=== PATIENT | female | born 1980 | race Caucasian/White ===

== ENCOUNTER 2020-07-07 07:10 | Outpatient (CLI) | payer OTHER, SELFPAY ==
[2020-07-07 07:23] LABS: Basophils Absolute Auto 0.08 K/mm3 (0.00-0.10); Basophils Percent Auto 0.6 % (0.0-1.0); Eosinophils Absolute Auto 0.83 K/mm3 (0.02-0.50); Eosinophils Percent Auto 5.7 % (1.0-6.0); Hematocrit 41.4 % (35.0-49.0); Hemoglobin 13.6 g/dL (12.0-15.0); Immature Granulocyte Absolute 0.08 K/mm3 (0.00-0.00); Immature Granulocyte Percent A 0.6 % (0.0-0.0); Lymphocytes Absolute Auto 3.65 K/mm3 (1.10-4.50); Lymphocytes Percent Auto 25.2 % (18.0-42.0); Mean Corpuscular HGB Conc 32.9 g/dL (32.0-36.0); Mean Corpuscular Hemoglobin 28.7 pg (27.0-31.0); Mean Corpuscular Volume 87.3 fL (78.0-102.0); Mean Platelet Volume 9.4 fl (9.2-11.8); Monocytes Absolute Auto 0.87 K/mm3 (0.10-0.90); Neutrophils Percent Auto 61.9 % (50.0-70.0); Platelet Count Result 460 K/mm3 (150-420); Red Blood Count 4.74 M/mm3 (4.20-5.40); Red Cell Distribution Width 13.9 % (11.6-14.4); White Blood Count 14.5 K/mm3 (4.8-10.8)
[2020-07-07 07:24] LABS: Add Urine Microscopic? NO; Appearance Urine Clear (Clear); Bilirubin Urine Negative (Negative); Blood Urine Negative (Negative); Color Urine Yellow (Yellow); Glucose Urine UA Negative (Negative); Ketones Urine Negative (Negative); Leukocyte Esterase Ur Negative (Negative); Nitrate Urine Negative (Negative); Protein Urine Negative (Negative); Specific Grav Ur <= 1.005 (1.010-1.020); Urobilinogen Urine 0.2 mg/dL (0.2-1.0); pH Urine 6.5 (5.0-8.0)
[2020-07-07 08:45] LABS: Alanine Aminotransferase 34 U/L (14-59); Albumin Level 3.6 g/dL (3.4-5.0); Alkaline Phosphatase 96 U/L (46-116); Anion Gap 7 mmol/L (8-16); Aspartate Amino Transferase 18 U/L (15-37); Bilirubin,Total 0.5 mg/dL (0.00-1.00); Blood Urea Nitrogen 11 mg/dL (7-18); CRP 1.7 mg/dL (0.0-0.9); Calcium 8.8 mg/dL (8.5-10.1); Carbon Dioxide 28 mmol/L (21-32); Chloride 103 mmol/L (98-108); Cholesterol 170 mg/dL (0-200); Estimated Glomerular Filt Rate > 60; Glucose 106 mg/dL (70-99); HDL Direct 26 mg/dL (40-60); LDL Cholesterol Calculated 112 mg/dL (<130); Osmolality Calculated 285 mOsm/kg (285-295); Potassium 4.6 mmol/L (3.5-5.1); Sodium 138 mmol/L (136-145); Thyroid Stimulating Hormone 2.41 uIU/mL (0.36-3.74); Total Protein 7.1 g/dL (6.4-8.2); Triglycerides 162 mg/dL (0-150)
[2020-07-10 11:09] LABS: Anti Cyclic Citrullinated Pept <16 Units (<20)
== END 2020-07-07 07:11 | disposition home or self-care (01) ==
PROVIDERS: PCP Internal Medicine; Visit Provider Internal Medicine
DX: Z00.00 Encounter for general adult medical examination without abnormal findings (principal); G56.03 Carpal tunnel syndrome, bilateral upper limbs; M06.9 Rheumatoid arthritis, unspecified
CPT/HCPCS: 36415; 80053; 80061; 81003; 84443; 85025; 86140; 86200

== ENCOUNTER 2020-09-24 15:52 | Outpatient (CLI) | payer OTHER, SELFPAY ==
[2020-09-24 16:09] LABS: Basophils Absolute Auto 0.07 K/mm3 (0.00-0.10); Basophils Percent Auto 0.6 % (0.0-1.0); Eosinophils Absolute Auto 0.61 K/mm3 (0.02-0.50); Hematocrit 37.6 % (35.0-49.0); Hemoglobin 12.4 g/dL (12.0-15.0); Immature Granulocyte Absolute 0.03 K/mm3 (0.00-0.00); Immature Granulocyte Percent A 0.2 % (0.0-0.0); Lymphocytes Absolute Auto 3.77 K/mm3 (1.10-4.50); Lymphocytes Percent Auto 31.1 % (18.0-42.0); Mean Corpuscular Hemoglobin 28.4 pg (27.0-31.0); Mean Platelet Volume 9.5 fl (9.2-11.8); Monocytes Absolute Auto 0.81 K/mm3 (0.10-0.90); Monocytes Percent Auto 6.7 % (2.0-11.0); Neutrophils Absolute Auto 6.9 K/mm3 (1.7-7.2); Neutrophils Percent Auto 56.4 % (50.0-70.0); Platelet Count Result 511 K/mm3 (150-420); Red Blood Count 4.37 M/mm3 (4.20-5.40); Red Cell Distribution Width 14.4 % (11.6-14.4); White Blood Count 12.1 K/mm3 (4.8-10.8)
[2020-09-24 17:14] LABS: Ferritin 31 ng/mL (8-252); Iron 24 ug/dL (50-170); Percent Iron Saturation 7 % (12-57)
[2020-09-30 13:01] LABS: CALR Exon 9 Mutation Not Detected (Not Detected); CSF3R Exon 14/17 Mutation Not Detected (Not Detected); JAK2 Exon 12 Mutation Not Detected (Not Detected); JAK2 V617F Mutation Not Detected (Not Detected); MPL Exon 10 Mutation Not Detected (Not Detected)
[2020-09-30 13:29] LABS: BCR/abl Prior Result Not Given
[2020-09-30 14:16] LABS: BCR/abl P190 Not Detected; BCR/abl P210 Not Detected
[2020-09-30 14:17] LABS: BCR/abl P190 Chg YES; BCR/abl P210 Chg YES
== END 2020-09-24 15:53 | disposition home or self-care (01) ==
LOC: CHSLAB 15:55
PROVIDERS: PCP Internal Medicine; Visit Provider Internal Medicine Hematology & Oncology
DX: D72.829 Elevated white blood cell count, unspecified (principal)
CPT/HCPCS: 36415; 81206; 81207; 81219; 81270; 81402; 81403; 81479; 82728; 83540; 83550; 85025

== ENCOUNTER 2021-04-09 12:06 | Outpatient (CLI) | payer OTHER, SELFPAY ==
[2021-04-09 12:17] LABS: Basophils Absolute Auto 0.05 K/mm3 (0.00-0.10); Basophils Percent Auto 0.4 % (0.0-1.0); Eosinophils Absolute Auto 0.66 K/mm3 (0.02-0.50); Eosinophils Percent Auto 5.1 % (1.0-6.0); Hematocrit 41.1 % (35.0-49.0); Hemoglobin 13.5 g/dL (12.0-15.0); Immature Granulocyte Absolute 0.06 K/mm3 (0.00-0.00); Immature Granulocyte Percent A 0.5 % (0.0-0.0); Lymphocytes Absolute Auto 3.43 K/mm3 (1.10-4.50); Lymphocytes Percent Auto 26.5 % (18.0-42.0); Mean Corpuscular HGB Conc 32.8 g/dL (32.0-36.0); Mean Corpuscular Hemoglobin 28.6 pg (27.0-31.0); Mean Corpuscular Volume 87.1 fL (78.0-102.0); Mean Platelet Volume 9.4 fl (9.2-11.8); Monocytes Absolute Auto 0.89 K/mm3 (0.10-0.90); Monocytes Percent Auto 6.9 % (2.0-11.0); Neutrophils Absolute Auto 7.8 K/mm3 (1.7-7.2); Neutrophils Percent Auto 60.6 % (50.0-70.0); Platelet Count Result 438 K/mm3 (150-420); Red Blood Count 4.72 M/mm3 (4.20-5.40); Red Cell Distribution Width 16.3 % (11.6-14.4); White Blood Count 12.9 K/mm3 (4.8-10.8)
[2021-04-09 12:56] LABS: Alanine Aminotransferase 50 U/L (14-59); Albumin Level 3.5 g/dL (3.4-5.0); Alkaline Phosphatase 99 U/L (46-116); Anion Gap 10 mmol/L (8-16); Aspartate Amino Transferase 24 U/L (15-37); Bilirubin,Total 0.2 mg/dL (0.00-1.00); Blood Urea Nitrogen 9 mg/dL (7-18); Calcium 8.7 mg/dL (8.5-10.1); Carbon Dioxide 28 mmol/L (21-32); Chloride 103 mmol/L (98-108); Estimated Glomerular Filt Rate > 60; Glucose 109 mg/dL (70-99); Osmolality Calculated 291 mOsm/kg (285-295); Potassium 4.1 mmol/L (3.5-5.1); Sodium 141 mmol/L (136-145)
[2021-04-10 14:54] LABS: Ferritin 56 ng/mL (8-252); Iron 34 ug/dL (50-170); Percent Iron Saturation 11 % (12-57)
[2021-04-15 16:31] LABS: CALR Exon 9 Mutation Not Detected (Not Detected); CSF3R Exon 14/17 Mutation Not Detected (Not Detected); JAK2 Exon 12 Mutation Not Detected (Not Detected); JAK2 V617F Mutation Not Detected (Not Detected); MPL Exon 10 Mutation Not Detected (Not Detected); Specimen Source Blood
[2021-04-17 13:06] LABS: BCR/abl Prior Result See Report
[2021-04-17 13:53] LABS: BCR/abl P190 Not Detected; BCR/abl P210 Not Detected
[2021-04-17 13:54] LABS: BCR/abl P190 Chg YES; BCR/abl P210 Chg YES
== END 2021-04-09 12:07 | disposition home or self-care (01) ==
LOC: CHSLAB 12:08
PROVIDERS: PCP Internal Medicine; Visit Provider Internal Medicine Hematology & Oncology
DX: D72.829 Elevated white blood cell count, unspecified (principal)
CPT/HCPCS: 36415; 80053; 81206; 81207; 81219; 81270; 81402; 81403; 81479; 82728; 83540; 83550; 85025

== ENCOUNTER 2021-04-30 12:42 | Outpatient (CLI) | payer OTHER, SELFPAY ==
[2021-04-30 13:11] VITALS: BMI 44.0
[2021-04-30 13:12] VITALS: BP 132/89; PULSE 72; RESP 14; TEMP 36.6; O2SAT 97
[2021-04-30] MEDS: IRON SUCROSE COMPLEX 300 MG in SODIUM CHLORIDE 0.9% IV 235 ML 125 MG IVPB (13:28)
--- NOTE | 2021-04-30 15:25 | PC.NURSE ---
Patient here for #1 of 3 weekly IV Venofer infusions. Education on Venofer given. No concerns. IV Venofer administered SEE MAR. Tolerated well. Safe exit of hospital. Will return May 07, 2021 1230 for #2.
== END 2021-04-30 12:43 | disposition home or self-care (01) ==
LOC: CHSTREATRM 12:45
PROVIDERS: PCP Internal Medicine; Visit Provider Internal Medicine Hematology & Oncology
DX: D50.9 Iron deficiency anemia, unspecified (principal)
CPT/HCPCS: 96365; 96366; J1756; J7050

== ENCOUNTER 2021-05-07 12:41 | Outpatient (CLI) | payer OTHER, SELFPAY ==
[2021-05-07 12:46] VITALS: BMI 44.0
[2021-05-07 12:54] VITALS: BP 150/87; PULSE 80; RESP 14; TEMP 36.4; O2SAT 97
[2021-05-07] MEDS: IRON SUCROSE COMPLEX 300 MG in SODIUM CHLORIDE 0.9% IV 250 ML 125 MG IVPB (13:06)
--- NOTE | 2021-05-07 15:08 | PC.NURSE ---
Patient here for #2 of 3 IV Venofer infusions. No concerns voiced. IV Venofer administered. SEE MAR. Tolerated well. Safe exit of hospital. Will be back 2020 for #3.
== END 2021-05-07 12:42 | disposition home or self-care (01) ==
LOC: CHSTREATRM 12:44
PROVIDERS: PCP Internal Medicine; Visit Provider Internal Medicine Hematology & Oncology
DX: D50.9 Iron deficiency anemia, unspecified (principal)
CPT/HCPCS: 96365; 96366; J1756; J7050

== ENCOUNTER 2021-05-14 12:52 | Outpatient (CLI) | payer OTHER, SELFPAY ==
[2021-05-14] MEDS: IRON SUCROSE COMPLEX 300 MG in SODIUM CHLORIDE 0.9% IV 235 ML 125 MG IVPB (13:15)
[2021-05-14 13:37] VITALS: BMI 44.0
[2021-05-14 13:38] VITALS: BP 120/87; PULSE 80; RESP 14; TEMP 36.5; O2SAT 95
--- NOTE | 2021-05-14 15:11 | PC.NURSE ---
Patient here for #3 of 3 IV Venofer infusions. No concerns. IV Venofer administered. Tolerated well. Safe exit of hospital.
== END 2021-05-14 12:53 | disposition home or self-care (01) ==
LOC: CHSTREATRM 12:54
PROVIDERS: PCP Internal Medicine; Visit Provider Internal Medicine Hematology & Oncology
DX: D50.9 Iron deficiency anemia, unspecified (principal)
CPT/HCPCS: 96365; 96366; J1756; J7050

== ENCOUNTER 2021-07-02 14:00 | Outpatient (CLI) | payer OTHER, SELFPAY ==
[2021-07-02 14:25] LABS: Basophils Absolute Auto 0.07 K/mm3 (0.00-0.10); Basophils Percent Auto 0.5 % (0.0-1.0); Eosinophils Absolute Auto 0.57 K/mm3 (0.02-0.50); Eosinophils Percent Auto 4.4 % (1.0-6.0); Hematocrit 42.8 % (35.0-49.0); Hemoglobin 14.6 g/dL (12.0-15.0); Immature Granulocyte Absolute 0.07 K/mm3 (0.00-0.00); Immature Granulocyte Percent A 0.5 % (0.0-0.0); Lymphocytes Absolute Auto 2.72 K/mm3 (1.10-4.50); Lymphocytes Percent Auto 21.1 % (18.0-42.0); Mean Corpuscular HGB Conc 34.1 g/dL (32.0-36.0); Mean Corpuscular Hemoglobin 31.2 pg (27.0-31.0); Mean Corpuscular Volume 91.5 fL (78.0-102.0); Mean Platelet Volume 9.9 fl (9.2-11.8); Monocytes Absolute Auto 0.98 K/mm3 (0.10-0.90); Monocytes Percent Auto 7.6 % (2.0-11.0); Neutrophils Absolute Auto 8.5 K/mm3 (1.7-7.2); Neutrophils Percent Auto 65.9 % (50.0-70.0); Platelet Count Result 422 K/mm3 (150-420); Red Blood Count 4.68 M/mm3 (4.20-5.40); Red Cell Distribution Width 14.6 % (11.6-14.4); White Blood Count 12.9 K/mm3 (4.8-10.8)
[2021-07-02 15:21] LABS: Ferritin 215 ng/mL (8-252); Iron 32 ug/dL (50-170); Percent Iron Saturation 12 % (12-57)
== END 2021-07-02 14:01 | disposition home or self-care (01) ==
LOC: CHSLAB 14:04
PROVIDERS: PCP Internal Medicine; Visit Provider Internal Medicine Hematology & Oncology
DX: E61.1 Iron deficiency (principal)
CPT/HCPCS: 36415; 82728; 83540; 83550; 85025

== ENCOUNTER 2022-11-15 16:27 | Emergency (ER) | payer OTHER, SELFPAY ==
[2022-11-15 16:28] VITALS: BP 172/114; PULSE 117; RESP 16; TEMP 36.3; O2SAT 99
--- NOTE | 2022-11-15 16:42 | ED.URI ---
HPI - URI/Sore Throat General Chief Complaint: Upper Respiratory Infection Stated Complaint: sore throat Time Seen by Provider: 11/15/22 16:40 Source: patient Mode of arrival: ambulatory History of Present Illness HPI Narrative: 42-year-old female, smoker presents to the ER with a 3 day history of -- sore throat -- change in voice no fever or chills. No cough or shortness of breath MD elicited complaint: sore throat Onset (ago): day(s) ( started 3 days ago) Consistency: constant Severity: mild Able to tolerate fluids by mouth: Yes Exacerbating factors: nothing Relieving factors: nothing Associated symptoms: denies other symptoms Related Data Home Medications Medication Instructions Recorded Confirmed ferrous sulfate 325 mg (65 mg 325 mg PO DAILY 04/30/21 11/15/22 iron) tablet montelukast 10 mg tablet 10 mg PO HS 04/30/21 11/15/22 omeprazole 40 mg capsule,delayed 40 mg PO DAILY 04/30/21 11/15/22 release Allergies Allergy/AdvReac Type Severity Reaction Status Date / Time No Known Allergies Allergy Mild Unverified 11/15/22 16:35 Review of Systems Review of Systems: All systems reviewed & are unremarkable except as noted in HPI and below Constitutional: Constitutional: Reports as per HPI and Reports no additional constitutional complaints Eyes: Eyes: Reports as per HPI and Reports no additional eye complaints ENT: Reports system reviewed and no additional complaints, except as documented and Reports sore throat Cardiovascular: Cardiovascular: Reports as per HPI and Reports no additional cardiovascular complaints Respiratory: Respiratory: Reports as per HPI and Reports no additional respiratory complaints Comments: history of snoring Gastrointestinal: Gastrointestinal: Reports as per HPI and Reports no additional gastrointestinal complaints Genitourinary: Genitourinary: Reports no additional female genitourinary complaints and Reports as per HPI Musculoskeletal: Musculoskeletal: Reports no additional musculoskeletal complaints and Reports as per HPI Integumentary/Breasts: Skin/Breast: Reports system reviewed and no additional complaints, except as docu and Reports as per HPI Neurologic: Reports system reviewed and no additional complaints, except as documented and Reports as per HPI Psychiatric: Psychiatric: Reports no additional psychiatric complaints and Reports as per HPI Endocrine: Endocrine: Reports no additional endocrine complaints and Reports as per HPI Hematologic/Lymphatic: Hematologic/Lymphatic: Reports no additional hematologic/lymphatic complaints and Reports as per HPI Allergic/Immunologic: Allergic/Immunologic: Reports no additional allergic/immunologic complaints and Reports as per [facility] Social History Social History (Updated 11/15/22 @ 16:51 by Goran Milligan MD) Social History: smoker Exam Const: General: healthy appearing Nutritional Appearance: well nourished Orientation/consciousness: patient oriented x3 Limitations: no limitations HENMT: Head: normal to inspection Ears: external ears normal Face/Nose/Sinus: Normal external nose present Face and sinus: normal facial exam Mouth: Yes Normal oral and palatal mucosa present Throat: posterior oropharynx normal ( pharyngeal erythema) Eyes: Conjunctivae: conjunctivae normal Pupils: Equal, round and reactive pupils present EOM: EOMs intact bilaterally Direct Ophthalmoscopy: no photophobia Neck: Neck: normal visual inspection, no lymphadenopathy, no meningeal signs and lymphadenopathy Chest: Chest palpation & inspection: normal inspection of the chest Resp: Effort & Inspection: normal respiratory effort Auscultation: clear to auscultation bilaterally Cardio: Rate: regular rate Rhythm: regular rhythm Heart sounds: Murmur heart sound present GI: GI Palp: Yes Soft to palpation Auscultation: normal bowel sounds Rectal Exam: normal sphincter tone : General: Yes no CVA tenderness Back/Spine/Pelv
[2022-11-15 16:47] VITALS: BP 156/101
--- NOTE | 2022-11-15 16:58 | ECG_ITS ---
Measurements Intervals Grant Rate: 95 P: 41 MS: 149 QRS: 39 QRSD: 94 T: 29 QT: 349 QTc: 440 Interpretive Statements SINUS RHYTHM BASELINE ARTIFACT- II, III, AVF NORMAL ECG NO PREVIOUS ECG AVAILABLE FOR COMPARISON Electronically Signed On 11-15-2022 19:28:22 CDT by Benjamin Whitmore D.O.
[2022-11-15 17:10] LABS: Basophils Percent Auto 0.7 % (0.0-1.0); Eosinophils Percent Auto 4.8 % (1.0-6.0); Hemoglobin 13.1 g/dL (12.0-15.0); Immature Granulocyte Absolute 0.07 K/mm3 (0.00-0.00); Immature Granulocyte Percent A 0.5 % (0.0-0.0); Lymphocytes Absolute Auto 3.31 K/mm3 (1.10-4.50); Lymphocytes Percent Auto 22.6 % (18.0-42.0); Mean Corpuscular HGB Conc 32.8 g/dL (32.0-36.0); Mean Corpuscular Hemoglobin 28.5 pg (27.0-31.0); Mean Corpuscular Volume 87.1 fL (78.0-102.0); Mean Platelet Volume 9.7 fl (9.2-11.8); Monocytes Absolute Auto 1.04 K/mm3 (0.10-0.90); Monocytes Percent Auto 7.1 % (2.0-11.0); Neutrophils Absolute Auto 9.4 K/mm3 (1.7-7.2); Neutrophils Percent Auto 64.3 % (50.0-70.0); Platelet Count Result 451 K/mm3 (150-420); Red Blood Count 4.59 M/mm3 (4.20-5.40); Red Cell Distribution Width 13.7 % (11.6-14.4); White Blood Count 14.6 K/mm3 (4.8-10.8)
[2022-11-15 17:27] LABS: Alanine Aminotransferase 33 U/L (14-59); Albumin Level 3.3 g/dL (3.4-5.0); Alkaline Phosphatase 89 U/L (46-116); Anion Gap 5 mmol/L (8-16); Aspartate Amino Transferase 19 U/L (15-37); Bilirubin,Total 0.2 mg/dL (0.00-1.00); Blood Urea Nitrogen 11 mg/dL (7-18); Carbon Dioxide 31 mmol/L (21-32); Chloride 102 mmol/L (98-108); Estimated Glomerular Filt Rate > 60; Glucose 107 mg/dL (70-99); Osmolality Calculated 285 mOsm/kg (285-295); Potassium 3.6 mmol/L (3.5-5.1); Sodium 138 mmol/L (136-145); Total Protein 7.7 g/dL (6.4-8.2); Troponin I 20.5 ng/L (0.00-60.4)
[2022-11-15 17:53] LABS: RSV RNA, RT-PCR Negative (Negative)
[2022-11-15 18:04] LABS: Influenza A QL RT-PCR Negative (Negative); Influenza B QL RT-PCR Negative (Negative); SARS-CoV-2 RNA PCR Negative (Negative)
[2022-11-15 18:15] LABS: Strep Group A RT-PCR NOT DETECTED (Negative)
[2022-11-15 18:27] VITALS: BP 163/104; PULSE 90; RESP 16; TEMP 36.7; O2SAT 100
== END 2022-11-15 18:27 | disposition home or self-care (01) ==
PROVIDERS: Emergency Provider Internal Medicine Critical Care Medicine; PCP Internal Medicine
DX: J06.9 Acute upper respiratory infection, unspecified (principal); I10 Essential (primary) hypertension; Z20.822 Contact with and (suspected) exposure to COVID-19
CPT/HCPCS: 36415; 80053; 84484; 85025; 87634; 87636; 87651; 93005; 99283

== ENCOUNTER 2024-08-14 16:48 | Emergency (ER) | payer SELFPAY ==
--- NOTE | ~2024-08-14 | XR_ITS ---
EXAMINATION: XR chest 2V Exam Date/Time: 08/14/2024 18:04 PERCHER HISTORY: cough Comparison: 07/21/2017. RESULT: Lines, tubes, and devices: None. Lungs and pleura: Mild diffuse reticular opacities and cuffing. No focal consolidation, pleural effu odessa, or pneumothorax. Cardiomediastinal silhouette: Stable. Other: No acute osseous or upper abdominal finding. IMPRESSION: Pulmonary opacities may represent respiratory bronchiolitis or mild interstitial edema. Reviewed, dictated and finalized at location K. HER IMPRESSION: Pulmonary opacities may represent respiratory bronchiolitis or mild interstitia l edema.
[2024-08-14 16:50] VITALS: PULSE 85; RESP 20; O2SAT 97
[2024-08-14 16:52] VITALS: BP 172/104; PULSE 106; RESP 20; TEMP 36.9; O2SAT 97
[2024-08-14 17:05] VITALS: O2SAT 97
--- NOTE | 2024-08-14 17:42 | ED_ITS ---
HPI - URI/Sore Throat General Chief Complaint: Upper Respiratory Infection Stated Complaint: Resp Symptoms Time Seen by Provider: 08/14/24 17:38 Source: patient Mode of arrival: ambulatory Limitations: no limitations History of Present Illness HPI Narrative: 43 year old female presents to the Emergency Department complaining of hoarseness in voice for past 3 weeks. Now has cough for past 3 days. Cough productive green phlegm. No known fever. No known exposure. No vomiting, diarrhea. MD elicited complaint: cough Onset (ago): week(s) (3) Severity: moderate Description of mucous: green Able to tolerate fluids by mouth: Yes Exacerbating factors: nothing Relieving factors: nothing Associated symptoms: voice changes Treatments prior to arrival: none Related Data Home Medications ?Medication ?Instructions ?Recorded ?Confirmed ?Last Taken ?Type ferrous sulfate 325 mg (65 mg 325 mg PO DAILY 04/30/21 11/15/22 Unknown History iron) tablet montelukast 10 mg tablet 10 mg PO HS 04/30/21 11/15/22 Unknown History omeprazole 40 mg capsule,delayed 40 mg PO DAILY 04/30/21 11/15/22 Unknown History release Allergies Allergy/AdvReac Type Severity Reaction Status Date / Time No Known Allergies Allergy Mild Unverified 11/15/22 16:35 Review of Systems Review of Systems: All systems reviewed & are unremarkable except as noted in HPI and below Constitutional: Constitutional: Reports as per HPI, Denies chills and Denies fever(s) Eyes: Eyes: Reports as per HPI ENT: Reports system reviewed and no additional complaints, except as documented and Denies sore throat Comments: hoarse voice Cardiovascular: Cardiovascular: Reports as per HPI and Denies chest pain Respiratory: Respiratory: Reports as per HPI and Reports cough Gastrointestinal: Gastrointestinal: Reports as per HPI, Denies abdominal pain, Denies diarrhea, Denies nausea and Denies vomiting Genitourinary: Genitourinary: Reports no additional female genitourinary complaints Musculoskeletal: Musculoskeletal: Reports no additional musculoskeletal complaints Integumentary/Breasts: Skin/Breast: Reports system reviewed and no additional complaints, except as docu Neurologic: Reports system reviewed and no additional complaints, except as documented Psychiatric: Psychiatric: Reports no additional psychiatric complaints Endocrine: Endocrine: Reports no additional endocrine complaints Hematologic/Lymphatic: Hematologic/Lymphatic: Reports no additional hematologic/lymphatic complaints Allergic/Immunologic: Allergic/Immunologic: Reports no additional allergic/immunologic complaints [facility] Social History Social History Social History: smoker Exam Const: General: no acute distress Nutritional Appearance: well nourished and obese Orientation/consciousness: patient oriented x3 Limitations: no limitations HENMT: Head: normal to inspection Ears: external ears normal Face/Nose/Sinus: Normal external nose present and Normal nares present Face and sinus: normal facial exam Mouth: Yes Normal oral and palatal mucosa present and Yes moist mucous membranes Throat: posterior oropharynx normal Eyes: Conjunctivae: conjunctivae normal Pupils: Equal, round and reactive pupils present EOM: EOMs intact bilaterally Direct Ophthalmoscopy: no photophobia Neck: Neck: normal visual inspection and meningismus present Chest: Chest palpation & inspection: normal inspection of the chest Resp: Effort & Inspection: normal respiratory effort Auscultation: clear to auscultation bilaterally and diminished lung sounds Cardio: Rate: regular rate Rhythm: regular rhythm Heart sounds: no murmurs GI: Inspection: non-distended GI Palp: Yes Soft to palpation and No Tenderness to palpation present (GI) : General: Yes bladder normal to palpation Back/Spine/Pelvis: Back: no CVA tenderness Skin: General skin exam: normal color Rashes: no rashes Neuro: General: patient oriented x3, moves all extremities, no meningeal signs, no focal motor deficits and CN's II-XI intact bilaterally Cranial nerves: Yes Nystagmus not present Speech: normal speech Gait exam (Neuro): Normal gait present Extrem: General: normal to inspection and no clubbing, cyanosis or edema Psych: Mental Status: mental status grossly normal Course Course Emergency Course: 43 y/o female presents to the ED c/o hoarse voice x 3 weeks and cough x 3 days. Cough productive green phlegm. No known exposure. No fever, nausea, vomiting, diarrhea. PE: obese, decreased breath sounds Covid: negative Influenza: negative RSV: negative CXR: pulmonary opacities may represent respiratory bronchiolitis or mild interstitial edema Tx: Zithromax 500 mg po *reviewed and discussed results with patient. Discussed further management. Patient voices understanding and agreement. Rx and Instructions Vital Signs Vital signs: Vital Signs Pulse Rate 85 08/14/24 16:50 Respiratory Rate 20 08/14/24 16:50 Pulse Oximetry 97 08/14/24 16:50 Oxygen Delivery Room Air 08/14/24 16:50 Temperature 36.9 C 08/14/24 16:52 Pulse Rate 106 H 08/14/24 16:52 Respiratory Rate 20 08/14/24 16:52 Blood Pressure 172/104 H 08/14/24 16:52 Pulse Oximetry 97 08/14/24 17:05 Oxygen Delivery Room Air 08/14/24 17:05 MDM - URI/Sore Throat Lab Data Labs: Lab Results 08/14/24 Range/Units 18:33 Influenza A (RT-PCR) Negative (Negative) Influenza B (RT-PCR) Negative (Negative) RSV (RT-PCR) Negative (Negative) SARS-CoV-2 RNA (RT-PCR) Negative (Negative) Discharge Plan Discharge Clinical Impression: Bronchiolitis Patient Disposition: Home, Self-Care Condition: Stable Instructions: Antibiotic Form, Bronchiolitis (ED) Additional Instructions: Push fluids Tylenol every 4 hours and Ibuprofen every 6 hours for fever Throat lozenges /sprays (benzocaine) as needed Take medication as prescribed Follow up Primary Care Physician Patient Language: Portuguese Prescriptions: New azithromycin [Zithromax Z-Darren] 250 mg tablet See Rx Instructions .ROUTE .COMPLEX Qty: 6 0RF Rx Instructions: For 250 mg dose pack: take 500 mg today (day 1), then 250 mg for 4 days (days 2-5) No Action omeprazole 40 mg Capsule,Delayed Release(Dr/Ec) 40 mg PO DAILY ferrous sulfate 325 mg (65 mg iron) Tablet 325 mg PO DAILY montelukast 10 mg Tablet 10 mg PO Follow-up/Referrals: Mikael Mart MD [Primary Care Provider] - Time of Disposition: 19:41
[2024-08-14 19:12] LABS: SARS-CoV-2 RNA PCR Negative (Negative)
[2024-08-14 19:15] LABS: Influenza A QL RT-PCR Negative (Negative); Influenza B QL RT-PCR Negative (Negative); RSV RNA, RT-PCR Negative (Negative)
[2024-08-14 19:45] VITALS: BP 172/104; PULSE 85; RESP 18; TEMP 36.9; O2SAT 98
--- NOTE | 2024-08-14 19:45 | PC.NURSE ---
ERP aware of Pt's vital's. No new orders.
[2024-08-14] MEDS: AZITHROMYCIN 250 MG TABLET 500 MG PO (19:48)
== END 2024-08-14 19:45 | disposition home or self-care (01) ==
PROVIDERS: Emergency Provider Emergency Medicine; PCP Internal Medicine
DX: J21.9 Acute bronchiolitis, unspecified (principal); Z20.822 Contact with and (suspected) exposure to COVID-19
CPT/HCPCS: 71046; 87637; 99283; A9270

== ENCOUNTER 2024-08-27 14:51 | Outpatient (CLI) | payer OTHER, SELFPAY ==
[2024-08-27 15:23] LABS: Appearance Urine Clear (Clear); Bilirubin Urine Negative (Negative); Blood Urine Negative (Negative); Color Urine Light Yellow (Yellow); Glucose Urine UA Negative (Negative); Ketones Urine Negative (Negative); Nitrate Urine Negative (Negative); Protein Urine Negative (Negative); Urobilinogen Urine 0.2 mg/dL (0.2-1.0)
[2024-08-27 15:24] LABS: Basophils Absolute Auto 0.05 K/mm3 (0.00-0.10); Basophils Percent Auto 0.4 % (0.0-1.0); Eosinophils Absolute Auto 0.66 K/mm3 (0.02-0.50); Eosinophils Percent Auto 5.1 % (1.0-6.0); Hematocrit 31.9 % (35.0-49.0); Hemoglobin 9.5 g/dL (12.0-15.0); Immature Granulocyte Absolute 0.09 K/mm3 (0.00-0.00); Immature Granulocyte Percent A 0.7 % (0.0-0.0); Immature Platelet Fraction Pct 2.4 % (1.0-7.0); Lymphocytes Absolute Auto 2.74 K/mm3 (1.10-4.50); Mean Corpuscular HGB Conc 29.8 g/dL (32-36); Mean Corpuscular Volume 70.4 fL (78.0-102.0); Mean Platelet Volume 9.2 fl (9.2-11.8); Monocytes Absolute Auto 0.82 K/mm3 (0.10-0.90); Monocytes Percent Auto 6.3 % (2.0-11.0); Neutrophils Absolute Auto 8.69 K/mm3 (1.70-7.20); Neutrophils Percent Auto 66.5 % (50.0-70.0); Nucleated Red Blood Cells Absolute Auto 0.02 K/mm3 (0.00-0.00); Nucleated Red Blood Cells Perc 0.2 % (0-0.0); Platelet Count Result 612 K/mm3 (150-420); Red Blood Count 4.53 M/mm3 (4.20-5.40); Red Cell Distribution Width 19.5 % (11.6-14.4); White Blood Count 13.1 K/mm3 (4.8-10.8)
[2024-08-27 15:30] LABS: Add Urine Microscopic? NO; Leukocyte Esterase Ur Negative (Negative)
[2024-08-27 16:03] LABS: Alanine Aminotransferase 46 U/L (14-59); Albumin Level 3.3 g/dL (3.4-5.0); Alkaline Phosphatase 118 U/L (46-116); Anion Gap 9 mmol/L (4-12); Aspartate Amino Transferase 32 U/L (15-37); Bilirubin,Total 0.2 mg/dL (0.00-1.00); Blood Urea Nitrogen 8 mg/dL (7-18); Calcium 9.3 mg/dL (8.5-10.1); Carbon Dioxide 30 mmol/L (21-32); Chloride 99 mmol/L (98-108); Cholesterol 153 mg/dL (0-200); Estimated Glomerular Filt Rate > 60; Glucose 138 mg/dL (70-99); HDL Direct 27 mg/dL (40-60); LDL Cholesterol Calculated 72 mg/dL (<130); Osmolality Calculated 286 mOsm/kg (285-295); Potassium 4.2 mmol/L (3.5-5.1); Sodium 138 mmol/L (136-145); Thyroid Stimulating Hormone 4.29 uIU/mL (0.36-3.74); Total Protein 7.4 g/dL (6.4-8.2); Triglycerides 270 mg/dL (0-150)
[2024-08-31 11:27] LABS: Hemoglobin A1C 7.7 % (<5.7)
== END 2024-08-27 14:52 | disposition home or self-care (01) ==
PROVIDERS: PCP Internal Medicine; Visit Provider Internal Medicine
DX: I10 Essential (primary) hypertension (principal); R73.01 Impaired fasting glucose
CPT/HCPCS: 36415; 80053; 80061; 81003; 83036; 84439; 84443; 85025; 85055

== ENCOUNTER 2024-09-17 07:59 | Emergency (ER) | payer OTHER, SELFPAY ==
[2024-09-17 08:00] VITALS: BP 153/105; PULSE 102; RESP 20; TEMP 36.6; O2SAT 100
--- NOTE | 2024-09-17 08:04 | ED.BACK ---
HPI - Back Pain/Injury General Chief Complaint: Back Pain/Injury Stated Complaint: lower back pain Time Seen by Provider: 09/17/24 08:04 History of Present Illness HPI Narrative: Pt was coughing yesterday and had pain in her right back/rib cage. Pt says it hurts to cough or move in certain ways. Pain is persistent but waxes and wanes in severity depending on movements or coughing which make it worse. Pt denies SOB or fever. Pt treated with antibiotics for branchitis recently. Related Data Home Medications ?Medication ?Instructions ?Recorded ?Confirmed ?Last Taken ?Type ferrous sulfate 325 mg (65 mg 325 mg PO DAILY 04/30/21 11/15/22 Unknown History iron) tablet montelukast 10 mg tablet 10 mg PO HS 04/30/21 11/15/22 Unknown History omeprazole 40 mg capsule,delayed 40 mg PO DAILY 04/30/21 11/15/22 Unknown History release cetirizine 10 mg tablet mg 09/17/24 Unknown History lisinopril 20 mg tablet mg 09/17/24 Unknown History Allergies Allergy/AdvReac Type Severity Reaction Status Date / Time No Known Allergies Allergy Mild Verified 09/17/24 08:32 Review of Systems Review of Systems: All systems reviewed & are unremarkable except as noted in HPI and below [facility] Social History Social History Social History: smoker Exam Const: General: cooperative, healthy appearing and no acute distress Nutritional Appearance: obese Orientation/consciousness: patient oriented x3 Limitations: no limitations Neck: Neck: normal visual inspection and full ROM Chest: Chest palpation & inspection: tenderness (right posterior lower intercostal muscles and ribs) Resp: Effort & Inspection: normal respiratory effort, able to speak in complete sentences and symmetric chest movement Auscultation: clear to auscultation bilaterally Cardio: Rate: regular rate Rhythm: regular rhythm Skin: General skin exam: normal color and no rashes or lesions noted Neuro: General: patient oriented x3 and moves all extremities Extrem: General: full ROM Psych: Appearance: grossly normal Mental Status: mental status grossly normal Speech and movement: Normal speech and movement present Affect: normal affect Attitude: cooperative Thought process: Normal thought process present Thought content: Yes Normal thought content present Course Vital Signs Vital signs: Vital Signs Temperature 97.9 F 09/17/24 08:00 Pulse Rate 102 H 01/13/25 08:00 Respiratory Rate 20 09/17/24 08:00 Blood Pressure 153/105 H 09/17/24 08:00 Pulse Oximetry 100 09/17/24 08:00 Oxygen Delivery Room Air 09/17/24 08:00 Temperature 97.9 F 09/17/24 08:00 Pulse Rate 102 H 09/17/24 08:00 Respiratory Rate 20 09/17/24 08:00 Blood Pressure 153/105 H 09/17/24 08:00 Pulse Oximetry 100 09/17/24 08:00 Oxygen Delivery Room Air 09/17/24 08:00 MDM - Back Pain/Injury MDM Narrative Medical decision making narrative: Pt presents with pain in right posterior lower rib cage after coughing yesterday. Seems like intercostal muscle pain spasm likely secondary to muscle strain. Lungs clear. Will give toradol IM here and home on muscle relaxer Discharge Plan Discharge Clinical Impression: Intercostal muscle strain Patient Disposition: Home, Self-Care Condition: Stable Instructions: Antibiotic Form, Thoracic Back Strain (ED) Patient Language: Macanese Prescriptions: New naproxen [Naprosyn] 500 mg tablet 500 mg PO BID Qty: 20 0RF methocarbamol 750 mg tablet 750 mg PO TID Qty: 30 0RF naproxen [Naprosyn] 500 mg tablet 500 mg PO BID Qty: 20 0RF methocarbamol 750 mg tablet 750 mg PO TID Qty: 30 0RF naproxen [Naprosyn] 500 mg tablet 500 mg PO BID Qty: 20 0RF methocarbamol 750 mg tablet 750 mg PO TID Qty: 30 0RF No Action omeprazole 40 mg Capsule,Delayed Release(Dr/Ec) 40 mg PO DAILY ferrous sulfate 325 mg (65 mg iron) Tablet 325 mg PO DAILY montelukast 10 mg Tablet 10 mg PO HS cetirizine 10 mg tablet lisinopril 20 mg tablet Follow-up/Referrals: Mikael Mart MD [Primary Care Provider] - Stand Alone Forms: Work/School Release IP
[2024-09-17] MEDS: KETOROLAC 30 MG/ML VIAL (*BKC) IM (08:19)
== END 2024-09-17 08:35 | disposition home or self-care (01) ==
PROVIDERS: Emergency Provider Emergency Medicine; PCP Internal Medicine
DX: S29.011A Strain of muscle and tendon of front wall of thorax, initial encounter (principal); X58.XXXA Exposure to other specified factors, initial encounter
CPT/HCPCS: 96372; 99283; J1885

== ENCOUNTER 2024-10-19 17:26 | Outpatient (CLI) | payer OTHER, SELFPAY ==
[2024-10-19 17:51] LABS: Hematocrit 38.5 % (35.0-49.0); Hemoglobin 11.3 g/dL (12.0-15.0); Immature Platelet Fraction Pct 2.9 % (1.0-7.0); Immature Reticulocyte Fraction 24.9 % (2.0-16.52); Mean Corpuscular HGB Conc 29.4 g/dL (32-36); Mean Corpuscular Hemoglobin 21.3 pg (27.0-31.0); Mean Corpuscular Volume 72.5 fL (78.0-102.0); Mean Platelet Volume 9.6 fl (9.2-11.8); Platelet Count Result 565 K/mm3 (150-420); Red Blood Count 5.31 M/mm3 (4.20-5.40); Red Cell Distribution Width 21.7 % (11.6-14.4); Reticulocyte Hemoglobin Conten 25.7 pg (28.0-35.0); Reticulocyte Percent 1.64 % (0.50-1.50); Reticulocytes Absolute 0.09 M/mm3 (0.02-0.10); White Blood Count 14.4 K/mm3 (4.8-10.8)
[2024-10-19 18:44] LABS: Ferritin 23 ng/mL (8-252); Iron 12 ug/dL (50-170); Percent Iron Saturation 3 % (12-57)
== END 2024-10-19 17:27 | disposition home or self-care (01) ==
LOC: CHSLAB 17:28
PROVIDERS: PCP Internal Medicine; Visit Provider Internal Medicine
DX: N92.4 Excessive bleeding in the premenopausal period (principal); D64.9 Anemia, unspecified
CPT/HCPCS: 36415; 82728; 83540; 83550; 85027; 85046; 85055

== ENCOUNTER 2024-10-22 09:50 | Emergency (ER) | payer OTHER, SELFPAY ==
--- NOTE | ~2024-10-22 | XR_ITS ---
EXAMINATION: XR ribs RT 2V DATE: 10/22/2024 10:48 INDICATION: Lower right rib pain. TECHNIQUE: 2 views of the right ribs on 3 radiographs were obtained. COMPARISON: Chest 2 views 08/14/2024 FINDINGS: There is mild atelectasis in right lower lung zone. No right-sided pleural effusion or pneu mothorax. There are fractures of right sixth-ninth ribs. There are gallstones in the gallbladder. IMPRESSION: 1. Acute fractures of right sixth-ninth ribs. Reviewed, dictated and finalized at location A. [facility]
[2024-10-22 09:50] VITALS: BP 172/100; PULSE 105; RESP 18; TEMP 36.6; O2SAT 96
--- NOTE | 2024-10-22 10:17 | ED_ITS ---
HPI - Abdominal Pain General Chief Complaint: Abdominal Pain Stated Complaint: rib pain Time Seen by Provider: 10/22/24 10:04 Source: patient Mode of arrival: ambulatory Limitations: no limitations History of Present Illness HPI narrative: patient is a 44-year-old female with no significant past medical history that presents today for rib pain. Patient has pain in her right ribs. She said she was in the shower and felt a sharp pain in the right rib. She says she was at work today and is having a lot of pain and they sent her home and told her the emergency department. It hurts worse when she moves to right or left. MD elicited complaint: abdominal pain Pertinent past history: none Onset (ago): day(s) Pain Consistency: intermittent Location: other ( Right ribs) Severity: mild Quality: cramping and stabbing Radiation: none Migration to: no migration Exacerbating factors: movement Relieving factors: nothing Associated symptoms: denies other symptoms Related Data Home Medications ?Medication ?Instructions ?Recorded ?Confirmed ?Last Taken ?Type ferrous sulfate 325 mg (65 mg 325 mg PO DAILY 04/30/21 11/15/22 Unknown History iron) tablet montelukast 10 mg tablet 10 mg PO HS 04/30/21 11/15/22 Unknown History omeprazole 40 mg capsule,delayed 40 mg PO DAILY 04/30/21 11/15/22 Unknown History release cetirizine 10 mg tablet mg 09/17/24 Unknown History lisinopril 20 mg tablet mg 09/17/24 Unknown History Allergies Allergy/AdvReac Type Severity Reaction Status Date / Time No Known Allergies Allergy Mild Verified 10/22/24 09:58 Review of Systems Review of Systems: All systems reviewed & are unremarkable except as noted in HPI and below Constitutional: Constitutional: Reports as per HPI Eyes: Eyes: Reports no additional eye complaints ENT: Reports system reviewed and no additional complaints, except as documented Cardiovascular: Cardiovascular: Reports no additional cardiovascular complaints Respiratory: Respiratory: Reports no additional respiratory complaints Gastrointestinal: Gastrointestinal: Reports no additional gastrointestinal complaints Genitourinary: Genitourinary: Reports no additional female genitourinary complaints Musculoskeletal: Musculoskeletal: Reports arthralgias ( right ribs) Integumentary/Breasts: Skin/Breast: Reports system reviewed and no additional complaints, except as docu Neurologic: Reports system reviewed and no additional complaints, except as documented Psychiatric: Psychiatric: Reports no additional psychiatric complaints Endocrine: Endocrine: Reports no additional endocrine complaints Hematologic/Lymphatic: Hematologic/Lymphatic: Reports no additional hematologic/lymphatic complaints Allergic/Immunologic: Allergic/Immunologic: Reports no additional allergic/immunologic complaints PMFSH Social History Social History Social History: smoker Exam Const: General: healthy appearing Nutritional Appearance: well nourished Orientation/consciousness: patient oriented x3 HENMT: Head: normal to inspection Ears: external ears normal Face/N ose/Sinus: Normal external nose present Face and sinus: normal facial exam Mouth: Yes Normal oral and palatal mucosa present Eyes: Conjunctivae: conjunctivae normal Pupils: Equal, round and reactive pupils present EOM: EOMs intact bilaterally Neck: Neck: normal visual inspection Chest: Chest palpation & inspection: normal inspection of the chest Resp: Effort & Inspection: normal respiratory effort Auscultation: clear to auscultation bilaterally Cardio: Rate: regular rate Rhythm: regular rhythm GI: GI Palp: Yes Soft to palpation Auscultation: normal bowel sounds Back/Spine/Pelvis: Back: no CVA tenderness Skin: General skin exam: normal color Rashes: no rashes Wounds: no wounds Neuro: General: patient oriented x3 Cranial nerves: Yes Nystagmus not present Speech: normal speech Gait exam (Neuro): Normal gait present Extrem: General: normal to inspection Psych: Mental Status: mental status grossly normal Affect: normal affect Attitude: cooperative Course Vital Signs Vital signs: Vital Signs Temperature 97.9 F 10/22/24 09:50 Pulse Rate 105 H 10/22/24 09:50 Respiratory Rate 18 10/22/24 09:50 Blood Pressure 172/100 H 10/22/24 09:50 Pulse Oximetry 96 10/22/24 09:50 Oxygen Delivery Room Air 10/22/24 09:50 Temperature 97.9 F 10/22/24 09:50 Pulse Rate 105 H 10/22/24 09:50 Respiratory Rate 18 10/22/24 09:50 Blood Pressure 172/100 H 10/22/24 09:50 Pulse Oximetry 96 10/22/24 09:50 Oxygen Delivery Room Air 10/22/24 09:50 MDM - Abdominal Pain MDM Narrative Medical decision making narrative: most likely this is probably costochondritis hash household muscles 120 and wrist. She departed is she was in the shower Maria Dolores sharp pain. Will do x-ray to rule out any fractures or dislocations. Discussed with her it is costochondritis he will take little while he will sometimes because has poor blood supply but discussed with her what this is and how it happens. Differential Diagnosis Differential diagnosis: Likely other ( Costochondritis) Medical Records Attestation: I reviewed the patient's medical records. Lab Data Attestation: I reviewed the patient's lab results. Labs: Lab Results 10/22/24 Range/Units 10:00 Urine Test Negative Imaging Data Attestation: I personally reviewed and interpreted this imaging study as follows: Radiologist's impression: ITS Impressions Ribs X-Ray 10/22/24 10:56 IMPRESSION: 1. Acute fractures of right sixth-ninth ribs. Discharge Plan Discharge Clinical Impression: Fracture of rib, Pain in rib Patient Disposition: Home, Self-Care Condition: Stable Instructions: Rib Fracture (ED) Patient Language: Tanzanian Prescriptions: New benzonatate 100 mg capsule 100 mg PO TID PRN (Reason: cough) Qty: 30 1RF No Action omeprazole 40 mg Capsule,Delayed Release(Dr/Ec) 40 mg PO DAILY ferrous sulfate 325 mg (65 mg iron) Tablet 325 mg PO DAILY montelukast 10 mg Tablet 10 mg PO HS naproxen [Naprosyn] 500 mg tablet 500 mg PO BID Qty: 20 0RF methocarbamol 750 mg tablet 750 mg PO TID Qty: 30 0RF naproxen [Naprosyn] 500 mg tablet 500 mg PO BID Qty: 20 0RF cetirizine 10 mg tablet lisinopril 20 mg tablet methocarbamol 750 mg tablet 750 mg PO TID Qty: 30 0RF naproxen [Naprosyn] 500 mg tablet 500 mg PO BID Qty: 20 0RF methocarbamol 750 mg tablet 750 mg PO TID Qty: 30 0RF Follow-up/Referrals: Mikael Mart MD [Primary Care Provider] - Time of Disposition: 11:16
[2024-10-22] MEDS: KETOROLAC (*BKC) 60 MG/2 ML VIAL IM (10:26)
--- NOTE | 2024-10-22 10:31 | PC.NURSE ---
pt is now pointing to rt rib area under axilla at bra line that wraps around. no wounds, contusions, deformities are noted. pt denies any sob, difficulty breathing, or coughing.
[2024-10-22 10:32] LABS: Pregnancy On Board Control Positive; Urine Pregnancy Test Negative
[2024-10-22 11:25] VITALS: PULSE 78; RESP 18; O2SAT 98
== END 2024-10-22 11:25 | disposition home or self-care (01) ==
PROVIDERS: Emergency Provider Family Medicine; PCP Internal Medicine
DX: S22.41XA Multiple fractures of ribs, right side, initial encounter for closed fracture (principal); X58.XXXA Exposure to other specified factors, initial encounter
CPT/HCPCS: 71100; 81025; 96372; 99283; J1885